=== PATIENT | female | born 1980 | race Caucasian/White ===

== ENCOUNTER 2019-03-19 07:15 | Emergency (ER) | payer OTHER ==
[~2019-03-19] VITALS: Ht 165.1 cm; Wt 82.1 kg
[2019-03-19] MEDS ORDERED: TIROSINT100 MCG PO (07:53)
[2019-03-19] MEDS ORDERED: LISINOPRIL10 MG PO (07:54)
[2019-03-19] MEDS ORDERED: ZOFRAN4 MG PO (08:11)
[2019-03-19] MEDS ORDERED: MECLIZINE HCL25 MG PO (09:48)
== END 2019-03-19 10:03 | disposition home or self-care (01) ==
LOC: ED 07:15
DX: R11.2 Nausea with vomiting, unspecified (principal); I10 Essential (primary) hypertension; E05.90 Thyrotoxicosis, unspecified without thyrotoxic crisis or storm; Z79.899 Other long term (current) drug therapy
CPT/HCPCS: 80053; 81001; 83735; 84703; 85025; 96361; 96374; 99284-25; J2405; J7040

== ENCOUNTER 2024-06-24 01:16 | Emergency (ER) | payer BC ==
[~2024-06-24] VITALS: Ht 165.1 cm; Wt 96.6 kg
[~2024-06-24 01:16] MED LIST: LISINOPRIL10 MG PO; MECLIZINE HCL25 MG PO; TIROSINT100 MCG PO; ZOFRAN4 MG PO
[2024-06-24] MEDS ORDERED: LEVOTHYROXINE112 MCG PO (01:25)
[2024-06-24] MEDS ORDERED: ASPIRIN 81 MG CHEW PO ONE (01:30)
[2024-06-24 01:37] LABS: BASOPHILS 0.8 % (0-2); EOSINOPHILS 1.3 % (0-6); HEMATOCRIT 43.1 % (35.0-50.0); HEMOGLOBIN 14.6 g/dL (12.0-18.0); LYMPHOCYTES 40.3 % (24-44); MCH 30.6 (27-36); MCHC 33.8 g/dl (30-36); MCV 90.4 fl (81-99); MONOCYTES 7.8 % (0-12); NEUTROPHILS 49.8 % (39-80); PLATELET COUNT 331 K/uL (140-440); RBC 4.77 M/ul (4.3-5.7); RDW 13.5 (10.5-15.0)
[2024-06-24] MEDS ORDERED: FAMOTIDINE 20 MG/ 2 ML VIAL IV ONE (01:45)
[2024-06-24 01:55] LABS: ALBUMIN 3.8 g/dL (3.4-5.0); ALBUMIN/GLOBULIN RATIO 0.83 (1.1-2.4); ANION GAP 13.6 (7-21); BILIRUBIN, TOTAL 0.2 ng/dL (0.2-1.0); BUN/CREATININE RATIO 12.84 (6.0-28.6); CREATININE, SERUM 1.09 mg/dL (0.55-1.02); MAGNESIUM 2.2 mg/dL (1.8-2.4); POTASSIUM 3.6 mmol/L (3.5-5.1); PROTEIN, TOTAL 8.4 g/dL (6.4-8.2)
[2024-06-24 03:22] VITALS: BP 130/89
--- NOTE | 2024-06-24 21:15 | EKG ---
[facility] [address] [place], [place] [address] Signed Normal sinus rhythm Cannot rule out Inferior infarct , age undetermined Abnormal ECG No previous ECGs available Confirmed by Walt Jurado DO ([id number]) on 06/24/2024 9:15:33 PM Electronically Signed By: WALT JURADO DO [id number] PATIENT NAME: GLADYS GONZALEZ Electrocardiogram DATE OF : 80 PHYSICIAN: WALT JURADO DO REPORT #: [id number] REPORT IS CONFIDENTIAL AND NOT TO BE RELEASED WITHOUT AUTHORIZATION
== END 2024-06-24 03:23 | disposition home or self-care (01) ==
LOC: ED 01:16
PROVIDERS: Internal Medicine
DX: R07.89 Other chest pain (principal); I10 Essential (primary) hypertension; Z79.890 Hormone replacement therapy; Z79.899 Other long term (current) drug therapy
CPT/HCPCS: 36415; 71045; 80053; 83735; 84484; 84703; 85025; 93005; 93010; 96374; 99285-25; A9270